=== PATIENT | male | born 1955 | race Caucasian/White ===

== ENCOUNTER → 2016-11-24 | Outpatient (CLI) | payer BC ==
--- NOTE | 2016-11-24 16:55 | CT ---
EXAMINATION TYPE: CT abdomen pelvis wo con DATE OF EXAM: 11/24/2016 4:31 PM COMPARISON: NONE HISTORY: Patient complains of urinary frequency, urgency, and microscopic hematuria. CT DLP: 416.5 mGycm Automated exposure control for dose reduction was used. FINDINGS: There is minimal atelectatic change present at the right lung base. There is no pleural or pericardial fluid. Within the abdomen, the liver, spleen and gallbladder are unremarkable. Both adrenal glands are normal. Limited views of the pancreas are unremarkable. There is no evidence of hydronephrosis or nephrolithiasis. There is no significant retroperitoneal, iliac or inguinal adenopathy. There is a 4.6 mm calculus at the level of the left UVJ. This is not causing hydronephrosis or hydrou reter. The bladder is otherwise unremarkable. There are scattered diverticula throughout the left side of the colon without radiographic evidence o f diverticulitis. The appendix is not visualized. Small bowel loops are normal. There is no evidence of free fluid or free air. There is a bilateral lysis at L5 with a grade 1 spondylolisthesis of L5 on S1. There is severe facet arthropathy at this level. There is disc space loss and vacuum phenomena present. There is also disc space loss at L3-4 and L4-5. No bony destructive lesion is seen.. IMPRESSION: 1. DISTAL LEFT URETERIC CALCULUS WITHOUT EVIDENCE OF HYDRONEPHROSIS. 2. UNCOMPLICATED DIVERTICULOSIS OF THE LEFT SIDE OF THE COLON. 3. DEGENERATIVE CHANGE WITHIN THE SPINE WELL THE BILATERAL LYSIS AT L5 WITH A GRADE 1 SPONDYLOL ISTHESIS OF L5 ON S1.
== END | disposition home or self-care (01) ==
LOC: RADCTMAIN 15:43
PROVIDERS: ATTEND Nurse Practitioner Family
DX: N20.1 Calculus of ureter (principal); K57.30 Diverticulosis of large intestine without perforation or abscess without bleeding
CPT/HCPCS: 74176; 81001; 87086

== ENCOUNTER → 2024-04-25 | Outpatient (CLI) | payer MEDICARE ==
--- NOTE | 2024-04-26 17:04 | XR ---
EXAMINATION TYPE: XR foot limited LT DATE OF EXAM: 04/25/2024 COMPARISON: None HISTORY: Pain TECHNIQUE: 2 view left foot FINDINGS: No acute fracture or dislocation is evident. Mild varus deformity of the distal fourth and fifth digits are present. Joint spaces are preserved. Calcaneus appears intact. Very tiny calcaneal s pur may be present. Soft tissues are unremarkable. Follow up exams can be performed 7-10 days from acute trauma for continued pain. IMPRESSION: 1. No acute osseous abnormality left foot
== END | disposition home or self-care (01) ==
LOC: RADXRMAIN 09:04
PROVIDERS: ATTEND Family Medicine
DX: M79.672 Pain in left foot (principal)

== ENCOUNTER → 2024-05-21 | Outpatient (CLI) | payer MEDICARE ==
--- NOTE | 2024-05-21 19:06 | CTL ---
EXAMINATION TYPE: CT Low Dose Lung DATE OF EXAM ORDERED: 05/21/2024 HISTORY: Current smoker [employer] dependence. Lung cancer screening CT DLP: 102.70 mGycm Automated exposure control for dose reduction was used. SCREENING VISIT: Initial COMPARISON: None TECHNIQUE: Low dose computed tomography scan was performed through the chest at 1 mm thick sections a nd reconstructed images in the coronal plane at [address] DIAGNOSTIC QUALITY: Satisfactory FINDINGS: LUNG NODULES: Present, detailed below: 1. There is a 0.2 cm peripheral nodule anterolateral right upper lung field. Series 6 image 16. LUNGS: COPD: Severity: None Fibrosis: Severity: None Lymph nodes: None Other findings: None RIGHT PLEURAL SPACE: Effusion: None Calcification: None Thickening: None Pneumothorax: None LEFT PLEURAL SPACE: Effusion: None Calcification: None Thickening: None Pneumothorax: None HEART: Heart Size: Normal Coronary calcification: Mild Pericardial effusion: None OTHER FINDINGS: Upper abdomen: Normal Bony thorax: Normal Supraclavicular region: Normal Other: None IMPRESSION: 1. Small subcentimeter nodule periphery right lung. Follow-up 12 months can be performed. FOLLOW UP CT CHEST RECOMMENDATION: Follow up limited CT chest one year CT LUNG RAD: Lung-Rad 2 Benign Appearance or Behavior
== END | disposition home or self-care (01) ==
LOC: RADCTMAIN 06:36
PROVIDERS: ATTEND Family Medicine
DX: Z12.2 Encounter for screening for malignant neoplasm of respiratory organs (principal); R91.1 Solitary pulmonary nodule; F17.210 Nicotine dependence, cigarettes, uncomplicated
CPT/HCPCS: 71271